=== PATIENT | female | born 1960 ===

== ENCOUNTER → 2020-03-31 | Day surgery (SDC) | payer BC ==
[2020-03-29 15:29] VITALS: BMI 28.3
[~2020-03-31] MED LIST: LACTATED RINGERS 1,000 ML IV SCH; LIDOCAINE 1% INJ 10MG/ML (20 ML MDV) ONE; PROPOFOL 10 MG/ML 20 ML VIAL IV ONE
[2020-03-31 13:01] VITALS: RESP 16; TEMP 97.1
--- NOTE | 2020-03-31 13:50 | P.PCN ---
Date of Procedure: 03/31/20 Procedure(s) Performed: BRIEF HISTORY: Patient is a 59-year-old, pleasant, white female scheduled for an upper endoscopy for evaluation of epigastric pain for the last few months duration. Presently on Prilosec 20 mg daily and doing much better.. PROCEDURE PERFORMED: Esophagogastroduodenoscopy with biopsy. PREOPERATIVE DIAGNOSIS: Epigastric pain of few months duration. IV sedation per anesthesia. PROCEDURE: After informed consent was obtained, the patient was brought into the endoscopy unit. IV sedation was administered by Anesthesia under continuous monitoring. Initially the Olympus GIF-140 video endoscope was inserted into the mouth. Esophagus intubated without any difficulty. It was gradually advanced into the stomach and duodenum and carefully examined. The bulb and the second part of the duodenum appeared normal. The scope at this time was withdrawn to the stomach, adequately insufflated with air, and upon careful examination, mucosa of the antrum, had mild gastritis and biopsies were done from this area. body, cardia and the fundus appeared normal. The scope was then withdrawn into the esophagus. The GE junction was located at 39 cm from the incisors. The esophagus appeared normal. There were no erosions or ulcerations seen, biopsies were done from the distal esophagus and the patient tolerated the procedure well. IMPRESSION: 1. Mild antral gastritis 2. No evidence of esophagitis RECOMMENDATIONS: The findings of this examination were discussed with the patient.as well as her family. She was advised to follow with the biopsy results. She will continue with omeprazole 20 mg daily and follow antireflux measures.
[2020-03-31 14:14] VITALS: BP 136/83; PULSE 71
== END ==
LOC: ORWHC2ENDO 11:36
PROVIDERS: ATTEND Internal Medicine Gastroenterology
DX: K29.50 Unspecified chronic gastritis without bleeding (principal); L71.9 Rosacea, unspecified; Z85.828 Personal history of other malignant neoplasm of skin; Z79.899 Other long term (current) drug therapy; Z79.2 Long term (current) use of antibiotics
CPT/HCPCS: 88305; 43239; J2001; J2704